=== PATIENT | female | born 1950 | race Caucasian/White ===

== ENCOUNTER 2021-10-23 13:11 | Emergency (ER) | payer MEDICARE, BC ==
[~2021-10-23 13:11] MED LIST: ALPRAZOLAM0.5 MG PO; BENICAR40 MG PO; BREO ELLIPTA 11 EACH INH; CALCIUM 600 +1 EAC7 PO; CATAPRES 0.1MG0.1 MG PO; COREG 12.5MG12.5 MG PO; ECOTRIN81 MG PO; FLONASE 0.05% N16 GM; HYDRALAZINE HCL25 MG PO; LEVOCETIRIZINE D5 MG PO; LIPITOR TAB 2020 MG PO; NORCO 7.5-3251 EACH PO; OCUVITE SOFTGE1 EACH PO; PROTONIX40 MG PO; SINGULAIR10 MG PO; VENTOLIN HFA 66.7 GM INH
[2021-10-23 14:10] LABS: HEMOGLOBIN 13.5 gm/dl (12.3-15.3); RED BLOOD COUNT 4.44 M/UL (4.00-5.10); WHITE BLOOD COUNT 6.4 K/UL (4.5-11.0)
== END 2021-10-23 16:58 | disposition home or self-care (01) ==
LOC: ER1 13:11
PROVIDERS: Emergency Medicine
DX: R00.2 Palpitations (principal)
CPT/HCPCS: 71045; 80053; 82550; 82553; 83735; 83880; 84484; 85025; 93005; 93242; 99285

== ENCOUNTER 2021-10-28 10:16 | Emergency (ER) | payer MEDICARE, BC ==
[2021-10-28 10:58] LABS: HEMOGLOBIN 13.4 gm/dl (12.3-15.3); RED BLOOD COUNT 4.45 M/UL (4.00-5.10); WHITE BLOOD COUNT 6.7 K/UL (4.5-11.0)
[2021-10-28 11:34] LABS: BUN/CREATININE RATIO 19 (0-10)
== END 2021-10-28 12:52 | disposition home or self-care (01) ==
LOC: ER1 10:16
PROVIDERS: Nurse Practitioner
DX: R06.00 Dyspnea, unspecified (principal); J44.9 Chronic obstructive pulmonary disease, unspecified; I25.2 Old myocardial infarction; I10 Essential (primary) hypertension; E78.5 Hyperlipidemia, unspecified; Z87.891 Personal history of nicotine dependence; Z79.82 Long term (current) use of aspirin; Z88.0 Allergy status to penicillin; Z95.1 Presence of aortocoronary bypass graft
CPT/HCPCS: 0240U; 36600; 71045; 80053; 81001; 82550; 82553; 82803; 83605; 83880; 84484; 85025; 85379; 86140; 87040; 93005; 99285

== ENCOUNTER → 2021-12-31 | Outpatient (CLI) | payer MEDICARE, BC | LOC: HEART 5 12-30 10:00 | DX: I47.1 Supraventricular tachycardia (principal); R00.2 Palpitations; I51.7 Cardiomegaly | CPT/HCPCS: 93306 ==